=== PATIENT | male | born 1950 | race Caucasian/White ===

== ENCOUNTER 2018-06-11 08:29 | Day surgery (SDC) | payer MEDICARE, MEDICAID ==
[2018-06-11] MEDS ORDERED: Dexmedetomidine 200 MCG/2 ML SDV IV ONE (08:30)
[2018-06-11] MEDS ORDERED: Lactated Ringers 1,000 ML IV ONE (08:30)
[2018-06-11] MEDS ORDERED: Midazolam 1 MG/ML 2 ML SDV IV ONE (08:30)
[2018-06-11] MEDS ORDERED: Morphine PF 10 MG/10 ML SDV IV ONE (08:30)
[2018-06-11] MEDS ORDERED: Scopolamine 1.5 MG Transdermal Patch TRDERM ONE (08:30)
[2018-06-11] MEDS ORDERED: Ketorolac 30 MG/ML SDV IVPUSH ONE (08:30)
[2018-06-11] MEDS ORDERED: Ketamine 500 mg/10 ML MDV IV ONE (08:30)
[2018-06-11] MEDS ORDERED: Propofol 200 MG/20 ML SDV IV ONE (08:30)
[2018-06-11] MEDS ORDERED: Gabapentin 300 MG Cap PO ONE (08:30)
[2018-06-11] MEDS ORDERED: Acetaminophen 500 MG Tab PO ONE (08:30)
[2018-06-11] MEDS ORDERED: fentaNYL 100 MCG/2 ML SDV IV ONE (08:30)
[2018-06-11] MEDS ORDERED: HYDROmorphone 2 MG/ML SDV IV ONE (08:30)
[2018-06-11] MEDS: Lactated Ringers 1,000 ML IV SCH ×2 (09:33→14:45)
[2018-06-11] MEDS ORDERED: ceFAZolin 2 GM in Premix Bag 1 BAG IV ONE (10:30)
[2018-06-11] MEDS: Ropivacaine 49.25 ML, EPINEPHrine 0.5 MG, cloNIDine 80 MCG, Sodium Chloride 0.9% 49.45 ML INJECT SCH ×8 (12:16→12:29)
[2018-06-11] MEDS ORDERED: traMADol 50 MG Tab PO PRN (12:57)
[2018-06-11] MEDS ORDERED: Magnesium Hydroxide 400 MG/5 ML Susp 30 ML Cup PO PRN (12:57)
[2018-06-11] MEDS ORDERED: Docusate Sodium 100 MG Cap PO PRN (12:57)
[2018-06-11] MEDS ORDERED: diphenhydrAMINE 50 MG/ML SDV IVPUSH PRN (12:57)
[2018-06-11] MEDS ORDERED: Bisacodyl 5 MG Tab PO PRN (12:57)
[2018-06-11] MEDS ORDERED: Sennosides 8.6 MG Tab PO PRN (12:57)
[2018-06-11] MEDS ORDERED: Ondansetron 4 MG/2 ML SDV IVPUSH PRN (12:57)
[2018-06-11] MEDS ORDERED: Naloxone 0.4 MG/ML SDV IVPUSH PRN (12:57)
[2018-06-11] MEDS ORDERED: Albuterol/Ipratropium 3.0-0.5 MG/3 ML Neb Soln *PTOM INH PRN (13:01)
[2018-06-11] MEDS: Gabapentin 600 MG Tab *PTOM PO SCH ×2 (14:50→20:28)
[2018-06-11] MEDS: ceFAZolin 2 GM in Premix Bag 1 BAG IV SCH ×2 (15:50→21:43)
--- NOTE | 2018-06-11 15:55 | OR ---
DATE OF OPERATION: 06/11/2018 SURGEON: Hamlet Veliz DO PREOPERATIVE DIAGNOSIS: Left knee primary osteoarthritis. POSTOPERATIVE DIAGNOSIS: Left knee primary osteoarthritis. PROCEDURE: Left knee medial compartment arthroplasty. ANESTHESIA: Spinal plus conscious sedation. FLUIDS: Lactated Ringer's solution. ESTIMATED BLOOD LOSS: 100 mL. COMPLICATIONS: None. SPECIMEN: None. DISCHARGE DISPOSITION: Stable to PACU. INSTRUMENTATION: DePuy. HISTORY AND INDICATION FOR THE PROCEDURE: The patient was seen in the [facility]. He has had many years of knee osteoarthritis with the left being worse than the right. He had failed injections. He has had multiple surgeries in the past including 2 total hips as well as a total shoulder surgery. He is on immunomodulators. He has been through the process several times before and is aware of the risk of infection. The risks and benefits of the procedure were explained to the patient. Informed consent was obtained. Preoperative imaging confirmed the above-mentioned diagnosis. DETAILS OF PROCEDURE: The patient was seen preoperatively by myself and the Anesthesia staff in the preoperative holding area where the operative site was marked. He was brought to the operative suite by Anesthesia staff where spinal plus conscious sedation was administered. A sterile Patel catheter was placed. The right lower extremity was placed into a stirrup. The left lower extremity was placed into a hip malone with gel pads and then all extremities were found to be well padded. The left lower extremity had a well-padded tourniquet placed. The left lower extremity was then prepped and draped in a sterile manner. Time-out was called identifying the correct patient, correct procedure, the correct site, and antibiotics had been begun within appropriate period of time. The left lower extremity was then exsanguinated and tourniquet was raised to 300 mmHg for 46 minutes and let down during cementing. A medial parapatellar incision was made from the tibial tubercle to the superior pole of the patella. Bleeding was controlled with Bovie electrocautery during the case. A medial parapatellar arthrotomy was then made. Gelpi's were used for retraction. The anterior portion of the medial meniscus as well as the fat pad was removed. The extramedullary tibial guide was then used and then pinned into place with a 2 mm cut. I made the vertical cut and then the horizontal cut, and then removed my tibial guide and then removed the bone using an osteotome. I used a 7 mm blue which is a medium guide. This was little bit tight, so I reapplied the guide and then resected another 2 mm. This provided appropriate distraction of the joint space in both flexion and extension equally. After that I did also protect the medial collateral ligament with a sharp Hohmann. I then removed the posterior medial meniscus as well as remaining portion of the medial meniscus. I then focused on the distal femoral cut. I placed my knee into extension and then placed the distal femoral cutting guide, pinned it in place, then made my distal femoral cut, and then removed the cutting guide and removed the distal femoral bone. I then marked the midportion of the blue spacer in both flexion and extension, and then placed my distal femoral cutting guide in flexion and pinned this in place, and then made my 3 distal femoral cuts as well as the 2 lug holes were drilled out. After this, I removed the cutting guide and then removed any extra bone. I then inserted my femoral implant trial and then inserted the spacer. This provided good range of motion, both flexion and extension. I then removed the femoral component as well as the spacer, and then placed my keel cutter, and then placed a lamina mechanical spreader operator. I then used a gouge to remove bone for the keel of the tibial base plate and then drilled the lug holes for the tibial base plate. After that had been complete, I then irrigated with saline and then placed some TXA and let it set on the wound and then placed some Betadine soaked irrigation, and I made sure that all my bone fragments were removed. We then dried it and then cemented my final components in place and let it dry in approximately 20 degrees of flexion. After we let the tourniquet down to 46 minutes, I then ranged the knee which provided excellent range of motion throughout full range of motion from 0-130 degrees flexion. I controlled some bleeding with Bovie electrocautery as well as small Gelfoam. Most of the bleeding was right around the tibial tubercle. I then closed the medial parapatellar incision with 2 interrupted #5 Ethibond as well as #1 Stratafix. I did this after I port more TXA through the wound. I then injected with local anesthetic and then closed the subcutaneous layer with #1 Stratafix, followed by skin angelika, followed by a Prevena, 13 cm wound VAC, and an Jerry wrap. The patient was then transferred to his hospital bed and taken to the PACU in stable condition. /[id number] MORGAN/GAEL
[2018-06-11] MEDS: Acetaminophen/oxyCODONE 325-5 MG Tab PO PRN (18:51)
[2018-06-11] MEDS: Morphine 2 MG/ML Syringe IVPUSH PRN (19:55)
[2018-06-11] MEDS: Sodium Chloride 0.9% 10 ML Syringe FLUSH PRN (19:56)
[2018-06-11] MEDS: VARENICLINE 1 MG PO SCH (20:27)
[2018-06-11] MEDS: BUDESONIDE INH SCH (20:27)
[2018-06-11] MEDS: FORMOTEROL FUMARATE INH SCH (20:27)
[2018-06-11] MEDS ORDERED: Albuterol 8 GM Inhaler INH SCH (21:00)
[2018-06-12] MEDS: Morphine 2 MG/ML Syringe IVPUSH PRN ×2 (02:29→05:26)
[2018-06-12] MEDS: Sodium Chloride 0.9% 10 ML Syringe FLUSH PRN ×3 (02:29→05:27)
[2018-06-12] MEDS: Acetaminophen/oxyCODONE 325-5 MG Tab PO PRN ×2 (02:29→08:29)
[2018-06-12] MEDS: ceFAZolin 2 GM in Premix Bag 1 BAG IV SCH (04:49)
[2018-06-12] MEDS ORDERED: Pantoprazole 40 MG Tab.CR PO SCH (06:00)
--- NOTE | 2018-06-12 07:46 | CR ---
INDICATION: Post-op. LEFT KNEE: Frontal and lateral views of the left knee were obtained 06/11/18-- no comparisons. A medial hemiarthroplasty is noted with post-surgical changes including air in the joint and skin angelika. Adequate position and alignment is suggested of the medial hemiarthroplasty components with no definite complicating process identified. STEFAN
[2018-06-12] MEDS: BUDESONIDE INH SCH (08:20)
[2018-06-12] MEDS: FORMOTEROL FUMARATE INH SCH (08:20)
[2018-06-12] MEDS: VARENICLINE 1 MG PO SCH (08:21)
[2018-06-12] MEDS: Gabapentin 600 MG Tab *PTOM PO SCH (08:22)
--- NOTE | 2018-06-12 08:46 | PCM.DCSUM1 ---
Discharge Summary - Hospital Course Diagnosis: Stroke: No - Discharge Data Discharge Date: 06/12/18 Discharge Disposition: Home, W Home Health Agency 06 Condition: Good - Discharge Diagnosis/Problem(s) (1) Primary osteoarthritis of left knee SNOMED Code(s): 990558435781295, [id number] ICD Code: M17.12 - UNILATERAL PRIMARY OSTEOARTHRITIS, LEFT KNEE Status: Acute Current Visit: Yes - Patient Summary/Data Operative Procedure(s) Performed: left medial unicompartmental knee arthroplasty Complications: none Consults: Consultations 06/11/18 12:57 Respiratory Care Assess and Treatment [CONS] Routine Comment: Physician Instructions: Post-op Pneumonia Prevention 06/11/18 15:00 OT Evaluation and Treatment [CONS] Routine Please Evaluate and Treat. OT Reason for Consult: Strengthening This query below is only for informational purposes and is not editable. Admission Diagnosis/Problem: Knee joint operation PT Evaluation and Treatment [CONS] Routine Please Evaluate and Treat. PT Reason for Consult: Strengthening This query below is only for informational purposes and is not editable. Admission Diagnosis/Problem: Knee joint operation - Patient Instructions Diet: Usual Diet as Tolerated Activity: Apply Ice, As Tolerated, Elevate Extremity, No Strenuous Activities Driving: Do Not Drive Showering/Bathing: May Shower Wound/Incision Care: Keep Operative Site/Wound Site Clean and Dry, Do NOT Change Dressing Wound/Incision, Other: remove provena would vac next Sunday Notify Provider of: Fever, Increased Pain, Swelling and Redness, Drainage, Nausea and/or Vomiting - Discharge Plan *PRESCRIPTION DRUG MONITORING PROGRAM REVIEWED*: Yes *COPY OF PRESCRIPTION DRUG MONITORING REPORT IN PATIENT DEMETRI: No Home Medications: Home Meds Acetaminophen/HYDROcodone [[place] 325-10 MG] 1 tab PO Q6HR PRN MDD LIMIT ACETAMINOPHEN TO 4000 MG 06/10/18 [History] Albuterol [Proventil HFA] 2 puff INH BID PRN 06/10/18 [History] Albuterol/Ipratropium [DuoNeb 3.0-0.5 MG/3 ML] 1 unit INH Q4H PRN 06/10/18 [ History] Allopurinol [Zyloprim] 300 mg PO DAILY 06/10/18 [History] Amphetamine/Dextroamphetamine [Adderall XR] 30 mg PO DAILY 06/10/18 [History] Aspirin [Ecotrin] 81 mg PO DAILY 06/10/18 [History] Budesonide/Formoterol Fumarate [Symbicort 160-4.5 Mcg Inhaler] 2 puff INH BID [History] Etanercept [Enbrel] 1 ml SQ MO 06/10/18 [History] Gabapentin [Neurontin] 600 mg PO TID 06/10/18 [History] Indomethacin 50 mg PO BID 06/10/18 [History] Varenicline [Chantix] 1 mg PO BID 06/10/18 [History] Oxygen Therapy Mode: Room Air Patient Handouts: Total Knee Replacement, Care After, [id number] - Discharge Summary/Plan Comment DC Time >30 min.: No - General Info Date of Service: 06/12/18 Admission Dx/Problem (Free Text: Left knee primary osteoarthritis Functional Status: Reports: Pain Controlled, Tolerating Diet, Ambulating, Urinating - Review of Systems General: Reports: No Symptoms HEENT: Reports: No Symptoms Pulmonary: Reports: No Symptoms Cardiovascular: Reports: No Symptoms Gastrointestinal: Reports: No Symptoms Genitourinary: Reports: No Symptoms Musculoskeletal: Reports: Joint Pain, Joint Swelling Skin: Reports: No Symptoms Neurological: Reports: No Symptoms Psychiatric: Reports: No Symptoms - Patient Data Vitals - Most Recent: Last Vital Signs Temp 98.3 F 06/12/18 04:00 Pulse 75 06/12/18 04:00 Resp 18 06/12/18 04:00 BP 137/78 06/12/18 04:00 Pulse Ox 96 06/12/18 04:00 Weight - Most Recent: 222 lb I&O - Last 24 hours: Intake & Output 06/11/18 06/12/18 06/12/18 22:59 06:59 14:59 Output Total 400 500 Balance -400 -500 Lab Results - Last 24 hrs: Laboratory Results - last 24 hr 06/11/18 06/12/18 06/12/18 Range/Units 08:55 06:07 06:07 WBC 8.9 (4.5-12.0) X10-3/uL RBC 4.60 (4.30-5.75) x10(6)uL Hgb 13.4 (11.5-15.5) g/dL Hct 40.9 (30.0-51.3) % MCV 89.0 (80-96) fL MCH 29.1 (27.7-33.6) pg MCHC 32.7 (32.2-35.4) g/dL RDW 16.8 H (11.5-15.5) % Plt Count 190 (125-369) X10(3)uL MPV 7.7 (7.4-10.4) fL Neut % (Auto) 69.4 (46-82) % Lymph % (Auto) 18.2 (13-37) % Wilkes % (Auto) 10.2 (4-12) % Eos % (Auto) 2 (1.0-5.0) % Baso % (Auto) 1 (0-2) % Neut # (Auto) 6.2 (1.6-8.3) # Lymph # (Auto) 1.6 (0.6-5.0) # Wilkes # (Auto) 0.9 (0.0-1.3) # Eos # (Auto) 0.1 (0.0-0.8) # Baso # (Auto) 0.1 (0.0-0.2) # Sodium 136 (135-145) mmol/L Potassium 4.1 (3.5-5.3) mmol/L Chloride 103 (100-110) mmol/L Carbon Dioxide 29 (21-32) mmol/L BUN 17 (7-18) mg/dL Creatinine 1.0 (0.70-1.30) mg/dL Est Cr Clr Drug Dosing 70.30 mL/min Estimated GFR (MDRD) > 60 (>60) BUN/Creatinine Ratio 17.0 (9-20) Glucose 101 (80-116) mg/dL Calcium 8.2 L (8.6-10.2) mg/dL Total Bilirubin 0.4 (0.1-1.3) mg/dL AST 14 (5-25) IU/L ALT 17 (12-36) U/L Alkaline Phosphatase 87 (56-112) IU/L Total Protein 6.4 (6.0-8.0) g/dL Albumin 2.7 L (3.2-4.6) g/dL Globulin 3.7 g/dL Albumin/Globulin Ratio 0.7 Blood Type A POSITIVE Gel Antibody Screen Negative Med Orders - Current: Current Medications Albuterol/Ipratropium (Duoneb 3.0-0.5 Mg/3 Ml) 3 ml INH Q4H PRN PRN Reason: Shortness of Breath Last Admin: 06/11/18 22:32 Dose: 3 ml Allopurinol (Zyloprim) 300 mg PO DAILY [facility] Last Admin: 06/12/18 08:22 Dose: 300 mg Aspirin (Ecotrin) 325 mg PO DAILY [facility] Last Admin: 06/12/18 08:22 Dose: 325 mg Bisacodyl (Dulcolax) 10 mg PO DAILY PRN PRN Reason: Constipation Diphenhydramine HCl (Benadryl) 25 mg IVPUSH Q4H PRN PRN Reason: Itching Docusate Sodium (Colace) 100 mg PO BID PRN PRN Reason: Constipation Gabapentin (Neurontin) 600 mg PO TID [facility] Last Admin: 06/12/18 08:22 Dose: 600 mg Lactated Ringer's (Ringers, Lactated) 1,000 mls @ 125 mls/hr IV ASDIRECTED [facility] Last Admin: 06/11/18 14:45 Dose: 125 mls/hr Magnesium Hydroxide (Milk Of Magnesia) 30 ml PO BID PRN PRN Reason: Constipation Melatonin (Melatonin) 5 mg PO BEDTIME PRN PRN Reason: Sleep Morphine Sulfate (Morphine) 2 mg IVPUSH Q2H PRN PRN Reason: Breakthrough Pain Last Admin: 06/12/18 05:26 Dose: 2 mg Naloxone HCl (Narcan) 0.1 mg IVPUSH ONETIME PRN PRN Reason: Oversedation Non-Formulary Medication (Amphetamine/Dextroamphetamine [Adderall Xr]) 30 mg PO DAILY [facility] (Budesonide/Formoterol Fumarate (Symbicort 160-4.5 Mcg Inh) *Ptom 0 puff INH BID [facility] Last Admin: 06/12/18 08:20 Dose: 2 puff Ondansetron HCl (Zofran) 4 mg IVPUSH Q4H PRN PRN Reason: Nausea/Vomiting Oxycodone/Acetaminophen (Percocet 325-5 Mg) 1 tab PO Q6H PRN PRN Reason: Pain Last Admin: 06/12/18 08:29 Dose: 1 tab Pantoprazole Sodium (Protonix) 40 mg PO DAILY@0600 [facility] Last Admin: 06/12/18 05:26 Dose: 40 mg Senna (Senna) 8.6 mg PO BID PRN PRN Reason: Constipation Sodium Chloride (Saline Flush) 10 ml FLUSH ASDIRECTED PRN PRN Reason: Keep Vein Open Last Admin: 06/12/18 05:27 Dose: 10 ml Tramadol HCl (Ultram) 100 mg PO Q6H PRN PRN Reason: Pain (mild 1-3) Varenicline (Chantix) 1 mg PO BID [facility] Last Admin: 06/12/18 08:21 Dose: 1 mg Discontinued Medications Acetaminophen (Tylenol Extra Strength) 1,000 mg PO ONETIME ONE Stop: 06/11/18 08:31 Last Admin: 06/11/18 09:08 Dose: 1,000 mg Albuterol (Ventolin Hfa) gm INH BID [facility] Ropivacaine 49.25 ml/Epinephrine HCl 0.5 mg/Clonidine HCl 80 mcg/ Sodium Chloride 49.45 ml 0 ml INJECT ASDIRECTED [facility] Last Admin: 06/11/18 12:29 Dose: 100 syringe Gabapentin (Neurontin) 300 mg PO ONETIME ONE Stop: 06/11/18 08:31 Last Admin: 06/11/18 14:06 Dose: Not Given Cefazolin Sodium/Dextrose 2 gm (/ Premix) 50 mls @ 100 mls/hr IV ONETIME ONE Stop: 06/11/18 10:59 Last Admin: 06/11/18 09:33 Dose: 100 mls/hr Cefazolin Sodium/Dextrose 2 gm (/ Premix) 50 mls @ 100 mls/hr IV Q6H [facility] Stop: 06/12/18 04:29 Last Admin: 06/12/18 04:49 Dose: 100 mls/hr Scopolamine (Transderm-Scop) 1.5 mg TRDERM Q72H ONE Stop: 06/11/18 08:31 Last Admin: 06/11/18 09:08 Dose: 1.5 mg - Exam General: Reports: Alert, Oriented, Cooperative, Mild Distress HEENT: Reports: Pupils Equal, Pupils Reactive, Mucous Membr. Moist/[place] Neck: Reports: Supple, Trachea Midline Lungs: Reports: Normal Respiratory Effort GI/Abdominal Exam: No Distention Extremities: No Pedal Edema, Normal Capillary Refill, Limited Range of Motion Skin: Reports: Warm, Dry, Intact Wound/Incisions: Reports: Healing Well, Dressing Dry and Intact, No Drainage Neurological: Reports: No New Focal Deficit Psy/Mental Status: Reports: Alert, Normal Affect, Normal Mood Discharge Operative/Procedures - Procedures Performed Operations: left pka
[2018-06-12] MEDS ORDERED: Non-Formulary Medication 1 Each (Amphetamine/Dextroamphetamine [Adderall Xr] 30 MG) PO SCH (09:00)
[2018-06-12] MEDS ORDERED: Aspirin 325 MG Tab.EC PO SCH (09:00)
[2018-06-12] MEDS ORDERED: Allopurinol 300 MG Tab *PTOM PO SCH (09:00)
[2018-06-12] MEDS ORDERED: Acetaminophen 325 MG Tab PO ONE (13:13)
[2018-06-12] MEDS ORDERED: oxyCODONE 5 MG Tab PO ONE (13:13)
== END 2018-06-12 14:00 | disposition home or self-care (01) ==
LOC: FB.MS 08:29 → UNDOADMIN 08:29 → FB.SDS 08:29 → FB.MS 08:29 → EDSTATUS 09:30 → FB.SDS 06-12 14:00 → UNDODISIN 06-12 14:00
PROVIDERS: ATTEND Orthopaedic Surgery
DX: M17.12 Unilateral primary osteoarthritis, left knee (principal); J44.9 Chronic obstructive pulmonary disease, unspecified; I10 Essential (primary) hypertension; M17.11 Unilateral primary osteoarthritis, right knee; Z87.891 Personal history of nicotine dependence; Z79.82 Long term (current) use of aspirin; Z79.899 Other long term (current) drug therapy; Z88.5 Allergy status to narcotic agent
CPT/HCPCS: 01402-QZ; 36415; 73560-LT; 80053; 85025; 86850; 86900; 86901; 97110-GP; 97161-GP; 97166-GO; 97530-GO; 97535-GO; A9270-GY; J0171; J0690; J0735; J1170; J1885; J2250; J2270; J2704; J2795; J3010; J3490; J7050; J7120; J7620-GY